=== PATIENT | male | born 1980 | race Caucasian/White ===

== ENCOUNTER 2022-07-01 08:48 | Outpatient (CLI) | payer OTHER, SELFPAY ==
[2022-07-01 09:37] LABS: Alanine Aminotransferase 254 U/L (16-63); Albumin Level 4.2 g/dL (3.4-5.0); Alkaline Phosphatase 89 U/L (46-116); Anion Gap 7 mmol/L (8-16); Aspartate Amino Transferase 96 U/L (15-37); Bilirubin,Total 0.5 mg/dL (0.00-1.00); Blood Urea Nitrogen 11 mg/dL (7-18); Calcium 9.2 mg/dL (8.5-10.1); Carbon Dioxide 31 mmol/L (21-32); Chloride 106 mmol/L (98-108); Cholesterol 194 mg/dL (0-200); Estimated Glomerular Filt Rate > 60; Glucose 100 mg/dL (70-99); HDL Direct 34 mg/dL (40-60); LDL Cholesterol Calculated 131 mg/dL (<130); Osmolality Calculated 297 mOsm/kg (285-295); Potassium 4.2 mmol/L (3.5-5.1); Sodium 144 mmol/L (136-145); Total Protein 7.8 g/dL (6.4-8.2); Triglycerides 147 mg/dL (0-150)
== END 2022-07-01 08:49 | disposition home or self-care (01) ==
LOC: CHSLAB 08:50
PROVIDERS: PCP Nurse Practitioner; Visit Provider Nurse Practitioner
DX: E78.2 Mixed hyperlipidemia (principal)
CPT/HCPCS: 36415; 80053; 80061

== ENCOUNTER 2022-11-05 10:24 | Outpatient (CLI) | payer OTHER, SELFPAY ==
[2022-11-05 11:13] LABS: SARS-CoV-2 RNA PCR Positive (Negative)
== END 2022-11-05 10:25 | disposition home or self-care (01) ==
LOC: CHSLAB 10:28
PROVIDERS: PCP Nurse Practitioner; Visit Provider Nurse Practitioner
DX: U07.1 COVID-19 (principal)
CPT/HCPCS: U0003; U0005